=== PATIENT | male | born 1970 | race Caucasian/White ===

== ENCOUNTER 2020-04-20 08:02 | Outpatient (REF) | payer OTHER, SELFPAY | END 2020-04-20 08:03 | disposition home or self-care (01) | LOC: HO.HMGCLDS 08:02 | PROVIDERS: PCP Internal Medicine; Visit Provider Internal Medicine | DX: Z20.828 Contact with and (suspected) exposure to other viral communicable diseases (principal) | CPT/HCPCS: U0003 ==

== ENCOUNTER 2020-05-29 08:06 | Outpatient (REF) | payer OTHER, SELFPAY ==
[2020-05-29 11:41] LABS: Hematocrit 45.2 % (42-52); Hemoglobin 14.8 g/dl (14.0-18.0); Mean Corpuscular HGB Conc 32.7 g/dl (31.0-36.0); Mean Corpuscular Hemoglobin 28.6 pg (27.0-33.0); Mean Corpuscular Volume 87.4 fL (80-98); Mean Platelet Volume 9.3 fL (9.4-12.4); Platelet Count 272 X10*3/uL (160-400); Red Blood Count 5.17 X10*6/uL (4.60-5.80); Red Cell Distribution Width 12.9 % (11.0-16.0); White Blood Count 5.8 X10*3/uL (4.8-10.8)
[2020-05-29 12:04] LABS: Alanine Aminotransferase 22 U/L (0-40); Albumin Level 4.6 g/dL (3.5-5.0); Alkaline Phosphatase 52 U/L (39-117); Anion Gap 12 (12-20); Aspartate Amino Transferase 18 U/L (5-37); Bilirubin Total 0.6 mg/dL (0.0-1.0); Blood Urea Nitrogen 22 mg/dL (9-16); Calcium 9.3 mg/dL (8.4-10.2); Carbon Dioxide 26 mmol/L (22-29); Chloride 106 mmol/L (96-108); Cholesterol 264 mg/dL; Estimated Glomerular Filt Rate > 60; Glucose Random 104 mg/dL (60-115); HDL Cholesterol 47 mg/dL; LDL Cholesterol Calculated 189 mg/dl; Potassium 4.2 mmol/l (3.3-5.1); Sodium 140 mmol/L (135-145); Total Protein 7.4 g/dL (6.5-8.0); Triglycerides 141 mg/dL
[2020-05-29 12:24] LABS: Erythrocyte Sedimentation Rate 8 MM/HR (0-15)
== END 2020-05-29 08:07 | disposition home or self-care (01) ==
LOC: HO.HMGCLDS 08:06
PROVIDERS: PCP Internal Medicine; Visit Provider Internal Medicine
DX: Z00.00 Encounter for general adult medical examination without abnormal findings (principal)
CPT/HCPCS: 36415; 80053; 80061; 85027; 85652

== ENCOUNTER 2020-09-11 06:14 | Outpatient (REF) | payer OTHER, SELFPAY ==
[2020-09-11 12:03] LABS: Erythrocyte Sedimentation Rate 5 MM/HR (0-15)
[2020-09-11 12:14] LABS: Alanine Aminotransferase 26 U/L (0-40); Albumin Level 4.5 g/dL (3.5-5.0); Alkaline Phosphatase 53 U/L (39-117); Anion Gap 14 (12-20); Aspartate Amino Transferase 21 U/L (5-37); Bilirubin Total 0.6 mg/dL (0.0-1.0); Blood Urea Nitrogen 21 mg/dL (9-16); C Reactive Protein 0.44 mg/dL (< or = 0.50); Calcium 9.6 mg/dL (8.4-10.2); Carbon Dioxide 22 mmol/L (22-29); Chloride 107 mmol/L (96-108); Cholesterol 179 mg/dL; Estimated Glomerular Filt Rate > 60; Glucose Fasting 101 mg/dL (60-99); HDL Cholesterol 41 mg/dL; LDL Cholesterol Calculated 111 mg/dl; Potassium 4.1 mmol/L (3.3-5.1); Sodium 139 mmol/L (135-145); Total Protein 7.3 g/dL (6.5-8.0); Triglycerides 139 mg/dL
[2020-09-18 11:37] LABS: HLA B27 Positive (Negative)
== END 2020-09-11 06:15 | disposition home or self-care (01) ==
LOC: HO.HMGCLDS 06:14
PROVIDERS: PCP Internal Medicine; Visit Provider Internal Medicine
DX: Z00.00 Encounter for general adult medical examination without abnormal findings (principal); M45.9 Ankylosing spondylitis of unspecified sites in spine; E78.5 Hyperlipidemia, unspecified
CPT/HCPCS: 36415; 80053; 80061; 85652; 86140; 86812

== ENCOUNTER 2021-11-05 08:33 | Outpatient (REF) | payer BC, SELFPAY ==
[2021-11-05 11:52] LABS: Hematocrit 43.3 % (42.0-52.0); Hemoglobin 14.4 g/dl (14.0-18.0); Mean Corpuscular HGB Conc 33.3 g/dl (31.0-36.0); Mean Corpuscular Hemoglobin 29.8 pg (27.0-33.0); Mean Corpuscular Volume 89.5 fL (80.0-98.0); Mean Platelet Volume 9.5 fL (9.4-12.4); Platelet Count 249 X10*3/uL (160-400); Red Blood Count 4.84 X10*6/uL (4.60-5.80); Red Cell Distribution Width 13.4 % (11.0-16.0); White Blood Count 6.5 X10*3/uL (4.8-10.8)
[2021-11-05 12:23] LABS: TSH reflex Free T4 0.46 uIU/mL (0.32-4.0)
[2021-11-05 13:07] LABS: Alanine Aminotransferase 35 U/L (0-40); Albumin Level 4.6 g/dL (3.5-5.0); Alkaline Phosphatase 49 U/L (39-117); Anion Gap 13 (12-20); Aspartate Amino Transferase 22 U/L (5-37); Bilirubin Total 0.6 mg/dL (0.0-1.0); Blood Urea Nitrogen 20 mg/dL (9-16); C Reactive Protein 0.21 mg/dL (< or = 0.50); Calcium 9.5 mg/dL (8.4-10.2); Carbon Dioxide 21 mmol/L (22-29); Chloride 109 mmol/L (96-108); Cholesterol 187 mg/dL; Estimated Glomerular Filt Rate > 60; Glucose Fasting 109 mg/dL (60-99); HDL Cholesterol 44 mg/dL; LDL Cholesterol Calculated 108 mg/dl; Sodium 139 mmol/L (135-145); Total Protein 7.4 g/dL (6.5-8.0); Triglycerides 175 mg/dL
[2021-11-07 09:27] LABS: Lyme Abs Screen <0.90 index
== END 2021-11-05 08:34 | disposition home or self-care (01) ==
LOC: HO.HMGCLDS 08:33
PROVIDERS: Absent Provider Nurse Practitioner Family; PCP Internal Medicine; Visit Provider Internal Medicine
DX: E78.5 Hyperlipidemia, unspecified (principal); I10 Essential (primary) hypertension; M45.9 Ankylosing spondylitis of unspecified sites in spine; S30.860A Insect bite (nonvenomous) of lower back and pelvis, initial encounter; W57.XXXA Bitten or stung by nonvenomous insect and other nonvenomous arthropods, initial encounter
CPT/HCPCS: 36415; 80053; 80061; 84443; 85027; 86140; 86617; 86618

== ENCOUNTER 2022-09-16 06:24 | Outpatient (REF) | payer BC, SELFPAY ==
[2022-09-16 11:14] LABS: MANUAL DIFF FLAG NO
[2022-09-16 11:32] LABS: Basophils Absolute Auto 0.1 X10*3/uL (0.0-0.2); Basophils Percent Auto 1.1 % (0-2); Eosinophils Absolute Auto 0.2 X10*3/uL (0.0-0.4); Eosinophils Percent Auto 3.6 % (0-4); Hemoglobin 14.9 g/dl (14.0-18.0); Imm Gran Abs Auto 0.05 X10*3/uL (0.00-0.03); Imm Gran Pct Auto 0.8 % (0.0-0.4); Lymphocytes Absolute Auto 2.4 X10*3/uL (1.2-4.9); Lymphocytes Percent Auto 36.7 % (20-40); Mean Corpuscular HGB Conc 33.1 g/dl (31.0-36.0); Mean Corpuscular Hemoglobin 29.7 pg (27.0-33.0); Mean Corpuscular Volume 89.6 fL (80.0-98.0); Mean Platelet Volume 9.4 fL (9.4-12.4); Monocytes Absolute Auto 0.6 X10*3/uL (0.1-1.2); Monocytes Percent Auto 9.3 % (2-11); Neutrophils Absolute Auto 3.2 x10*3/uL (2.0-8.3); Neutrophils Percent Auto 48.5 % (45-73); Platelet Count 244 X10*3/uL (160-400); Red Blood Count 5.02 X10*6/uL (4.60-5.80); Red Cell Distribution Width 13.2 % (11.0-16.0); White Blood Count 6.6 X10*3/uL (4.8-10.8)
[2022-09-16 11:34] LABS: Appearance Urine Turbid; Color Urine Yellow; Glucose Urine UA Negative (Negative); Leukocyte Esterase Urine Negative (Negative); Nitrite Urine Negative (Negative); PH 5.5 (5.0-9.0); Specific Gravity - Urine 1.025 (1.005-1.025); Urine Blood Negative (Negative); Urine Ketones Negative (Negative); Urine Protein Negative (Neg-Trace)
[2022-09-16 11:39] LABS: Estimated Average Glucose 117 mg/dL; Hemoglobin A1c % 5.7 %
[2022-09-16 12:07] LABS: Alanine Aminotransferase 41 U/L (0-40); Albumin Level 4.5 g/dL (3.5-5.0); Alkaline Phosphatase 46 U/L (39-117); Anion Gap 12 (12-20); Aspartate Amino Transferase 25 U/L (5-37); Bilirubin Total 0.8 mg/dL (0.0-1.0); Blood Urea Nitrogen 23 mg/dL (9-16); Calcium 9.9 mg/dL (8.4-10.2); Carbon Dioxide 23 mmol/L (22-29); Chloride 108 mmol/L (96-108); Cholesterol 179 mg/dL; Estimated Glomerular Filt Rate > 60; Glucose Fasting 110 mg/dL (60-99); HDL Cholesterol 42 mg/dL; LDL Cholesterol Calculated 114 mg/dl; Potassium 4.1 mmol/L (3.3-5.1); Sodium 139 mmol/L (135-145); Total Protein 6.9 g/dL (6.5-8.0); Triglycerides 119 mg/dL
[2022-09-16 12:25] LABS: PSA,Total (Free>4and<10) 1.28 ng/mL (0.00-4.00); TSH reflex Free T4 0.83 uIU/mL (0.32-4.0)
== END 2022-09-16 06:25 | disposition home or self-care (01) ==
LOC: HO.HMGCLDS 06:24
PROVIDERS: PCP Internal Medicine; Visit Provider Internal Medicine
DX: Z12.5 Encounter for screening for malignant neoplasm of prostate (principal); E78.5 Hyperlipidemia, unspecified; M45.9 Ankylosing spondylitis of unspecified sites in spine; R73.9 Hyperglycemia, unspecified; I10 Essential (primary) hypertension
CPT/HCPCS: 36415; 80053; 80061; 81003; 83036; 84153; 84443; 85025; 86140

== ENCOUNTER → 2022-10-22 12:42 | Outpatient (BNVA) | payer BC, SELFPAY | PROVIDERS: PCP Internal Medicine; Visit Provider Nurse Practitioner ==

== ENCOUNTER 2023-04-29 08:00 | Outpatient (RCR) | payer BC, SELFPAY ==
--- NOTE | 2022-09-24 09:04 | MHC.PT.EP ---
[facility] [place] Office [place] Office [place] Office [address] Bryan Blood [address] [phone] F: [phone] F: [phone] F: [phone] F: [phone] Physical Therapy Plan of Care Date of Evaluation: Date of Surgery: Diagnosis: This is a 52 yo male presenting to skilled PT with a script for pain in L shoulder. Assessment: This is a 52 yo female presenting to skilled PT with a script for pain in L shoulder. Patient is RHD. He is here today reporting ongoing on and off again shoulder pain after being diagnosed with ankylosing spondylosis 10 years ago. He states that it is not just his shoulder but it moves to different joints depending on the day and tiem. He has had PT on and off for this and the last time was 5 months ago. He reports still doing some HEP but unable to recall which exercises. Pain is located in the middle in the joint and is described as sharp. This has been lingering for 8-10 months now. He had a cortisone injection at the associate pathologist which did not help. Pain increases with reaching overhead and to the side, laying on the L. Pain improves with movement. Assessment reveals pain that ranges up to about a 4/10. Patient demos decreased ROM with upper trap compensation, strength at shoulder and scapular stabilizers, TTP at upper trap and decreased functional tolerance for ADLs, sleeping and housework. Based on functional limitations, impaired QOL and pain tolerance patient is a good candidate for skilled PT 2x/wk for 4wks. 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 Manual therapy to restore motion and function. Therapeutic exercise to improve strength and flexibility. Neuromuscular re-education for posture and balance. Therapeutic activities to return to functional activities of daily living. Electronically signed by: Lindsey Bernal PT Please sign and return to therapist. Thank you for your referral.
--- NOTE | 2023-05-01 07:41 | MHC.PT.DC ---
[facility] [place] Office [place] Office [place] Office [address] Bryan Blood [address] [phone] F: [phone] F: [phone] F: [phone] F: [phone] Physical Therapy Discharge Report Diagnosis: This is a 52 yo male presenting to skilled PT with a script for pain in L shoulder. Date of Surgery: Date of Evaluation: 09/24/22 Date of Discharge: 05/01/23 Treatments to Date: 20 Cancellations to Date: 0 No Shows to Date: 0 Discharge Status: Achieved Goals Improved Function Independent with HEP Insurance Declined Tx Recommend MD Follow-up Discharge Summary: Patient has had 20 visits of PT. His insurance plan is ending for the year and he needs a new referral for PT. Educated him on PT POC, importance of performing HEP on his own. He was adamant on needing PT hands on manual however he was also educated on importance of independence. He was educated to follow up with his MD as he still has symptoms and would benefit from further referrals to imaging, orthopedics, or maybe rheumatology. DC to HEP. Electronically signed by: Lindsey Bernal PT Please sign and return to therapist. Thank you for your referral.
== END 2023-05-01 07:42 | disposition home or self-care (01) ==
LOC: HO.PTCHIC 08:00
PROVIDERS: PCP Internal Medicine; Visit Provider Internal Medicine
DX: M25.512 Pain in left shoulder (principal)
CPT/HCPCS: 97110; 97140; 97161; 97530

== ENCOUNTER 2023-05-06 06:20 | Day surgery (SDC) | payer BC, SELFPAY ==
[2023-05-04 12:12] VITALS: BMI 30.4
--- NOTE | 2023-05-05 11:48 | HO.ANESPROP2 ---
Documented by User: Linda Hill NP 05/05/23 11:48 HPI - Anesthesia Eval Consult details Narrative: 52yo M for Colonoscopy PMFSH Active Problems Active Problems: All Active Problems (Updated 10/22/22 @ 13:13 by MARIANO Tran) Family history of polyps in the colon (Acute) Pre-op examination (Acute) Shoulder pain, left (Acute) Hyperglycemia (Acute) HTN (hypertension) (Acute) Hyperlipidemia (Acute) Ankylosing spondylitis (Acute) Annual physical exam (Acute) Past Medical History Medical History Hyperlipidemia HTN (hypertension) Ankylosing spondylitis Annual physical exam Family History Family History Mother Ovarian ca Father Stroke Sister Stroke Maternal Grandfather Breast cancer Surgical History Surgical History Hx of appendectomy Social History Social History Housing: House Alcohol intake: current Alcohol intake frequency: does not drink Patient Tobacco Use Status: Current everyday Tobacco user e-Cigarette/Vaping Use: Never Used Are you DNR?: No Advance Directives: No Advance Directives Information Provided: Yes Current occupational status: employed Cognitive needs: No Hearing needs: No Vision needs: Yes Meds Allergies Allergy/AdvReac Type Severity Reaction Status Date / Time penicillin V Allergy Mild Rash Verified 09/19/22 12:12 Home Medications Medication Instructions Recorded Confirmed Last Taken Type aspirin 81 mg tablet,delayed 81 mg PO DAILY 05/25/20 09/19/22 04/29/23 History release cetirizine 10 mg tablet (Zyrtec) 10 mg PO DAILY PRN allergies 10/22/22 05/05/23 History Exam Height,Weight and Vital Signs: Height 5 ft 5 in Weight 83.007 kg Pertinent Lab Results Pertinent Lab Results: Laboratory Tests 09/16/22 06:45 WBC 6.6 Hgb 14.9 Hct 45.0 Plt Count 244 Sodium 139 Potassium 4.1 Chloride 108 Carbon Dioxide 23 BUN 23 H Creatinine 0.85 Assessment and Plan Assessment Anesthesia Assessment: Chart Reviewed Documented by User: Krista Arthur MD 05/06/23 07:44 PMFSH Past Medical History Medical History Hyperlipidemia HTN (hypertension) Ankylosing spondylitis Annual physical exam Family History Family History Mother Ovarian ca Father Stroke Sister Stroke Maternal Grandfather Breast cancer Family history of problems with anesthesia: No Surgical History Surgical History Hx of appendectomy History of Problems with Anesthesia: No Social History Social History Housing: House Alcohol intake: current Alcohol intake frequency: does not drink Patient Tobacco Use Status: Current everyday Tobacco user e-Cigarette/Vaping Use: Never Used Are you DNR?: No Advance Directives: No Advance Directives Information Provided: Yes Current occupational status: employed Cognitive needs: No Hearing needs: No Vision needs: Yes Meds Allergies Allergy/AdvReac Type Severity Reaction Status Date / Time penicillin V Allergy Mild Rash Verified 09/19/22 12:12 Home Medications Medication Instructions Recorded Confirmed Last Taken Type aspirin 81 mg tablet,delayed 81 mg PO DAILY 05/25/20 09/19/22 04/29/23 History release cetirizine 10 mg tablet (Zyrtec) 10 mg PO DAILY PRN allergies 10/22/22 05/05/23 History Exam Airway Mallampati Class: II TM Dist: >3cm Neck ROM: Full Heart: rrr Lungs: cta Assessment and Plan Assessment Anesthesia Assessment: Anesthesia Plan Discussed Final Anesthetic Review Family History of Problems with Anesthesia: No History of Problems with Anesthesia: No NPO: Yes ASA Class: II and III Final Preanesthetic Review: No Changes in Pt Med Stat, Meds/Allgs Chart Reviewed, Consent Obtained/Reviewed and Anes Risks/Benef Reviewed Patient Risk: Intermediate Procedure Risk: Intermediate Anesthetic Plan Anesthetic Plan: MAC: Disposition: Standard PACU
[2023-05-06 06:30] VITALS: BP 115/69; PULSE 83; RESP 18; TEMP 36.3; O2SAT 97
[2023-05-06 06:31] VITALS: BMI 31.6
[2023-05-06] MEDS: Lactated Ringers 1,000 ML 100 ML IVCONT (06:52)
--- NOTE | 2023-05-06 06:52 | MHC.SHP ---
Pre-Procedural Eval Section A Date of Service: 05/06/23 Section B Chief Complaint: Family history of colonic polyps Relevant Family History (Specify if Yes): Yes Relevant Social History: Tobacco Use Present Medications: see Short Stay Collaborative assessment Medical History: Significant History (Hyperlipidemia HTN (hypertension) Ankylosing spondylitis) History of Previous Operations: Relevant previous surgery/procedure and date(s) (appendectomy) Allergies: Allergies Allergy/AdvReac Type Severity Reaction Status Date / Time penicillin V Allergy Mild Rash Verified 09/19/22 12:12 Review of Systems Sugical H&P ROS: Negative: Constitution, Cardiovascular, Respiratory, Neurological, Psychiatric, Hem-Onc, Allergic/Immunologic, Gastrointestinal, Genitourinary, Musculoskeletal, Integumentary, Endocrine and Eyes/Ears/Nose/Throat Exam Surgical H&P Exam: Normal: HEENT, Normal: Heart, Normal: Lungs, Normal: Extremities, Normal: Abdomen, Normal: Skin and Normal: Neurological Plan Diagnosis/Plan: Unchanged I have reviewed the history and physical and performed a pertinent physical examination on my patient. No changes have occurred unless specified. Time Spent With Patient Time: Total time managing care of this patient today ____ minutes.
--- NOTE | 2023-05-06 08:56 | W.PM.OPN ---
Operative Note Operative Note Date of Service: 05/06/23 Narrative: Operative Information Procedure Description: Colonoscopy Indication: screening Anesthesia: MAC COLONOSCOPY Instrument: Olympus variable stiffness pediatric scope 190L Colonoscopy Monitoring: Vital signs and clinical assessment, continuous EKG monitoring, Pulse oximetry, Carbon Dioxide monitoring and blood pressure monitoring were done throughout the procedure. Colon withdrawal time was 14 minutes. Procedure: The patient was placed in the left lateral decubitis position and pre-procedure medications were administered. After a digital rectal examination of the ano-rectum, the video colonoscope was inserted into the rectum and advanced through the colon to the cecum/TI. The colonoscope was slowly withdrawn in a retrograde panoramic fashion and the colon mucosa was carefully examined including a retroflexed view of the rectum. Findings and interventions are described below. Procedure Difficulty: easy Findings: Terminal Ileum-normal Cecum:normal Ascending Colon: x 2 sessile polyps 7-10 mm removed with cold snare Transverse Colon -normal Descending Colon:normal Sigmoid Colon: normal Rectum: Retroflexion with small internal hemorrhoids, grade I, 4-6 mm sessile polyp removed with cold forceps Anorectum - normal Colon preparation: [place] Bowel Preparation Scale Right colon; 2 Transverse colon: 3 Left colon; 3 (0 = Unprepared colon segment with mucosa not seen due to solid stool that cannot be cleared. 1 = Portion of mucosa of the colon segment seen, but other areas of the colon segment not well seen due to staining, residual stool and/or opaque liquid. 2 = Minor amount of residual staining, small fragments of stool and/or opaque liquid, but mucosa of colon segment seen well. 3 = Entire mucosa of colon segment seen well with no residual staining, small fragments of stool or opaque liquid) Impression and Post Procedure Diagnosis: polyps internal hemorrhoids Plan: High fiber diet leaflet Avoid straining at stool, epsom salts and sitz bath, anusol supps or cream Repeat Colonoscopy in 5 years due to polyps or earlier if clinically indicated Above findings were reviewed with the patient and relevant handouts were provided if indicated.
[2023-05-06 08:58] VITALS: BP 104/64; PULSE 82; RESP 16; TEMP 36.7; O2SAT 95
[2023-05-06 09:15] VITALS: BP 114/82; PULSE 87; RESP 18; TEMP 36.7; O2SAT 96
== END 2023-05-06 09:57 | disposition home or self-care (01) ==
PROVIDERS: PCP Internal Medicine; Visit Provider Internal Medicine Gastroenterology
PROC: 0DJD8ZZ Inspection of Lower Intestinal Tract, Via Natural or Artificial Opening Endoscopic (ICD-10-PCS; CPT 45378; principal; 2023-05-06 08:30)
DX: Z12.11 Encounter for screening for malignant neoplasm of colon (principal); Z83.719 Family history of colon polyps, unspecified; D12.2 Benign neoplasm of ascending colon; D12.8 Benign neoplasm of rectum; K64.0 First degree hemorrhoids; I10 Essential (primary) hypertension; E78.00 Pure hypercholesterolemia, unspecified; R73.9 Hyperglycemia, unspecified; M45.9 Ankylosing spondylitis of unspecified sites in spine; Z79.82 Long term (current) use of aspirin; Z79.899 Other long term (current) drug therapy; Z88.0 Allergy status to penicillin; F17.210 Nicotine dependence, cigarettes, uncomplicated
CPT/HCPCS: 45385; 45380; 88305; J2704

== ENCOUNTER → 2023-05-06 06:20 | Outpatient (BNV) | payer BC, SELFPAY | PROVIDERS: PCP Internal Medicine; Visit Provider Internal Medicine Gastroenterology | DX: Z12.11 Encounter for screening for malignant neoplasm of colon (principal); D12.2 Benign neoplasm of ascending colon; D12.8 Benign neoplasm of rectum; K64.0 First degree hemorrhoids | CPT/HCPCS: 45380; 45385 ==

== ENCOUNTER 2023-05-21 11:12 | Outpatient (AMB) | payer BC, SELFPAY ==
[2023-05-21 11:13] VITALS: BP 122/74; PULSE 77; BMI 31.1
--- NOTE | 2023-05-21 11:13 | MHC.OFFVIS ---
Intake Vital Signs 05/21/23 11:13 Height 5 ft 5 in Weight 186 lb 15.232 oz BMI 31.1 BP 122/74 Blood Pressure Location Lt brachial Position Sitting Pulse 77 Intake Visit Reasons: s/P [place]; Dr. Cardoso Intake Note: Patient presents to in office visit today in follow up of colonoscopy. CC: Patient underwent colonoscopy with DR. Cardoso on 05/06/23. Patient reports doing well and denies having any GI symptoms or concerns. Allergies penicillin V Allergy (Mild, Verified 05/21/23 11:16) Rash HPI s/P [place]; Dr. Cardoso HPI Details Assessment & Plan (1) Pre-op examination: Code(s): Z01.818 - Encounter for other preprocedural examination Plan: This is his first colonoscopy. He denies any bowel or upper GI problems. He denies any cardiac or respiratory problems. No ID problems. There are no prior problems with anesthesia or sedation. His brother had colon polyps removed. (2) Family history of polyps in the colon: Comment: borther Code(s): Z83.71 - Family history of colonic polyps Medications: New peg 3350-electroly nikolas 236-22.74-6.74 -5.86 gram (Golyt jose) until feca l effluent is karel r; do not exceed a total volume of 2 ,000 mL 240 mL PO Q10M 1 day 4,000 mL 0RF Z12.11 - Encounter for screening for malignant neoplas m of colon COLONOSCOPY 05/06/23 Findings: Terminal Ileum-normal Cecum:normal Ascending Colon: x 2 sessile polyps 7-10 mm removed with cold snare Transverse Colon -normal Descending Colon:normal Sigmoid Colon: normal Rectum: Retroflexion with small internal hemorrhoids, grade I, 4-6 mm sessile polyp removed with cold forceps Anorectum - normal Impression and Post Procedure Diagnosis: polyps internal hemorrhoids Plan: High fiber diet leaflet Avoid straining at stool, epsom salts and sitz bath, anusol supps or cream Repeat Colonoscopy in 5 years due to polyps or earlier if clinically indicated BIOPSY: Received: 05/06/23 Diagnosis A. Colon, ascending, polypectomies (2): Fragments of tubular adenomata; negative for high-grade dysplasia or carcinoma. B. Rectum, polypectomy: Tubular adenoma; negative for high-grade dysplasia or carcinoma TODAY'S VISIT The procedure needs to be repeated in 5 years due to the tubular adenomas. The procedure was well tolerated. The results were explained and the patient is agreeable to the follow-up interval as stated. The bowel pattern has returned to normal. Education was provided to tell any 1st degree relatives about their findings to be sure that they are screened by age 45. Educated that they will be put on a recall list when it is time for their repeat scope but should they move out of state or away from the hospital they will need to remember along with their primary to repeat the procedure in a timely fashion to avoid any adverse complications. [facility] Medical History Hyperlipidemia HTN (hypertension) Ankylosing spondylitis Annual physical exam Surgical History H/O colonoscopy Hx of appendectomy Family History Mother Ovarian ca Father Stroke Sister Stroke Maternal Grandfather Breast cancer Social History Housing: House Alcohol intake: current Alcohol intake frequency: does not drink Patient Tobacco Use Status: Current everyday Tobacco user e-Cigarette/Vaping Use: Never Used Current occupational status: employed Cognitive needs: No Hearing needs: No Vision needs: Yes Review of Systems Const Denies fatigue, Denies fever(s), Denies night sweats, Denies poor appetite and Denies weight loss Eyes Details: glasses Reports requires corrective lenses ENT Reports Normal hearing present, Denies dental pain, Denies dysphagia, Denies hearing loss, Denies mouth pain, Denies odynophagia, Denies throat swelling, Denies tongue swelling and Reports other (Dentition adequate) Card Reports no additional complaints Resp Reports no additional complaints GI Denies abdominal pain, Denies melena, Denies bloating, Denies hematochezia, Denies constipation, Denies GI cramping, Denies dysphagia, Denies excessive flatus, Denies early satiety, Denies heartburn, Denies diarrhea, Denies nausea, Denies odynophagia, Denies vomiting and Denies hematemesis Skin/Breast Denies pruritus, Denies lesions, Denies rash and Denies jaundice Neuro Reports Normal hearing present and Denies Abnormal speech present Endo Denies fatigue Aller/Immun Denies throat swelling and Denies tongue swelling Physical Exam Vital Signs: Last Vital Signs Pulse 77 05/21/23 11:13 BP 122/74 05/21/23 11:13 BMI result Body Mass Index 31.1 Const General: cooperative, no acute distress, well developed and well groomed Nutritional Appearance: well nourished and obese Orientation/consciousness: oriented to person, oriented to place and oriented to time Limitations: No language barrier HEENT Head: Yes normocephalic and Yes atraumatic Eyes General: appearance normal, both eyes and all related structures Pupils: Equal, round and reactive pupils present Neck Neck: Yes normal visual inspection and Yes no lymphadenopathy Thyroid: Thyroid normal Resp Effort & Inspection: normal respiratory effort and able to speak in complete sentences Auscultation: clear to auscultation bilaterally Cardio Rate: regular rate Rhythm: regular rhythm Heart sounds: Normal, physiologic split S2 sound present Peripheral pulses: radial pulses present and posterior tibial pulses present GI Inspection: No distended, No Abdominal panniculus present and Yes obesity Palpation (GI): Soft to palpation, nontender, no guarding, not rigid and No hepatosplenomegaly present Percussion: Yes normal to percussion Auscultation: normal bowel sounds Rectal Exam - Male: Yes deferred Skin General skin exam: no rashes or lesions noted, turgor normal, skin not dry, no jaundice, No spider nevi and no striae Rashes: no rashes Nails: normal Neuro General: oriented to person, oriented to place and oriented to time Cranial nerves: Yes Equal, round and reactive pupils present and Yes Normal hearing present Speech: No Abnormal speech present Extrem General: Yes normal to inspection, No clubbing, No cyanosis and No edema Psych Appearance: grossly normal and well kempt Mental Status: mental status grossly normal Speech and movement: Normal speech and movement present Affect: normal affect Attitude: cooperative Thought process: Normal thought process present and not confabulating Thought content: Normal thought content present Insight: Fair insight present (Psych) Judgement: Fair judgement present (Psych) Results Reviewed Results Reviewed: COLONOSCOPY 05/06/23 Findings: Terminal Ileum-normal Cecum:normal Ascending Colon: x 2 sessile polyps 7-10 mm removed with cold snare Transverse Colon -normal Descending Colon:normal Sigmoid Colon: normal Rectum: Retroflexion with small internal hemorrhoids, grade I, 4-6 mm sessile polyp removed with cold forceps Anorectum - normal Impression and Post Procedure Diagnosis: polyps internal hemorrhoids Plan: High fiber diet leaflet Avoid straining at stool, epsom salts and sitz bath, anusol supps or cream Repeat Colonoscopy in 5 years due to polyps or earlier if clinically indicated BIOPSY: Received: 05/06/23 Diagnosis A. Colon, ascending, polypectomies (2): Fragments of tubular adenomata; negative for high-grade dysplasia or carcinoma. B. Rectum, polypectomy: Tubular adenoma; negative for high-grade dysplasia or carcinoma Assessment & Plan Assessment & Plan (1) Tubular adenoma of colon: Comment: 04/2023= 3 TA is repeat in [address] Schwartz son Code(s): D12.6 - Benign neoplasm of colon, unspecified Plan The procedure needs to be repeated in 5 years due to the tubular adenomas. The procedure was well tolerated. The results were explained and the patient is agreeable to the follow-up interval as stated. The bowel pattern has returned to normal. Education was provided to tell any 1st degree relatives about their findings to be sure that they are screened by age 45. Educated that they will be put on a recall list when it is time for their repeat scope but should they move out of state or away from the hospital they will need to remember along with their primary to repeat the procedure in a timely fashion to avoid any adverse complications. Coding Level of Care Code Est Pt Level 3 (04709) Diagnoses Tubular adenoma of colon D12.6
== END 2023-05-21 11:45 | disposition home or self-care (01) ==
PROVIDERS: PCP Internal Medicine; Visit Provider Nurse Practitioner
DX: D12.6 Benign neoplasm of colon, unspecified (principal)
CPT/HCPCS: 99213

== ENCOUNTER → 2023-05-21 11:12 | Outpatient (BNVA) | payer BC, SELFPAY | PROVIDERS: PCP Internal Medicine; Visit Provider Nurse Practitioner ==

== ENCOUNTER 2023-07-01 08:21 | Outpatient (REF) | payer BC, SELFPAY ==
[2023-07-01 11:56] LABS: Estimated Average Glucose 114 mg/dL; Hemoglobin A1C 134.1778 umol/L; Hemoglobin A1c % 5.6 % (<6.0)
[2023-07-01 12:24] LABS: Alanine Aminotransferase 31 U/L (0-40); Albumin Level 4.3 g/dL (3.5-5.0); Alkaline Phosphatase 46 U/L (39-117); Anion Gap 12 (12-20); Aspartate Amino Transferase 23 U/L (5-37); Bilirubin Total 0.7 mg/dL (0.0-1.0); Blood Urea Nitrogen 14 mg/dL (9-16); Calcium 9.6 mg/dL (8.4-10.2); Carbon Dioxide 24 mmol/L (22-29); Chloride 107 mmol/L (96-108); Cholesterol 250 mg/dL (<200); Estimated Glomerular Filt Rate > 60; Glucose Fasting 103 mg/dL (60-99); HDL Cholesterol 42 mg/dL (>40); LDL Cholesterol Calculated 168 mg/dL (<100); Potassium 3.9 mmol/L (3.3-5.1); Sodium 139 mmol/L (135-145); Total Protein 7.3 g/dL (6.5-8.0); Triglycerides 204 mg/dL (<150)
== END 2023-07-01 08:22 | disposition home or self-care (01) ==
LOC: HO.HMGCLDS 08:21
PROVIDERS: PCP Internal Medicine; Visit Provider Internal Medicine
DX: I10 Essential (primary) hypertension (principal); E78.5 Hyperlipidemia, unspecified; R73.9 Hyperglycemia, unspecified
CPT/HCPCS: 36415; 80053; 80061; 83036

== ENCOUNTER 2024-02-26 12:53 | Outpatient (AMB) | payer BC, SELFPAY ==
--- NOTE | 2024-02-26 12:58 | MHC.PC.OV ---
Vital Signs 02/26/24 13:01 Height 5 ft 5 in Weight 185 lb BMI 30.8 BP 124/78 Blood Pressure Location Lt brachial Position Sitting Pulse 84 Pulse Source Pulse Oximeter Pulse Oximetry (%) 97 Oxygen Delivery Method Room Air Intake Visit Reasons: Annual PE Intake Note: Pt is here today for PE. Allergies penicillin V Allergy (Mild, Verified 02/26/24 13:11) Rash Medication List - Last Reconciled 02/26/24 by Kia Abdalla MD aspirin 81 mg PO DAILY atorvastatin 20 mg PO DAILY cetirizine (Zyrtec) 10 mg PO DAILY PRN lisinopril 20 mg PO DAILY Tobacco use date assessed: 02/26/24 Dental Screening Dental Screen Date: 02/26/24 Did you have a dental visit in the last 12 months?: Yes Did you have a dental problem in the last 6 months where you did not have access to dental care?: No HPI Annual PE HPI Details Patient presents for physical PFSH Medical History Hyperlipidemia HTN (hypertension) Ankylosing spondylitis Annual physical exam Surgical History H/O colonoscopy Hx of appendectomy Family History Mother Ovarian ca Father Stroke Sister Stroke Maternal Grandfather Breast cancer Social History Housing: House Alcohol intake: current Alcohol intake frequency: does not drink Patient Tobacco Use Status: Never used Tobacco e-Cigarette/Vaping Use: Never Used service: No Current occupational status: employed Cognitive needs: No Hearing needs: No Vision needs: Yes Questionnaire PHQ-9 Over the last 2 weeks, how often have you been bothered by any of the following problems? 1. Little interest or pleasure in doing things: not at all 2. Feeling down, depressed, or hopeless: not at all 3. Trouble falling or staying asleep, or sleeping too much: not at all 4. Feeling tired or having little energy: not at all 5. Poor appetite or overeating: not at all 6. Feeling bad about yourself - or that you are a failure or have let yourself or your family down: not at all 7. Trouble concentrating on things, such as reading the newspaper or watching television: not at all 8. Moving or speaking so slowly that other people could have noticed. Or the opposite - being so fidgety or restless that you have been moving around a lot more than usual: not at all 9. Thoughts that you would be better off or of hurting yourself in some way: not at all Total score: 0 Depression Screening Interpretation: Negative Depression Screening Done: Yes 19893 - PHQ-9 Billing: Yes Source: Developed by Drs. Florencio Jones, Carolina Argueta, Carlito Mahajan and colleagues, with an educational luis a from [employer]. Thrive Questionnaire Date Thrive assessed: 02/26/24 I am a: Patient What is your living situation today?: I have a steady place to live Within the past 12 months, did the food you bought not last and you didn't have the money to get more?: Never true Within the past 12 months, did you worry whether your food would run out before you got money to buy more?: Never true Do you have trouble paying for medicines?: No Do you have trouble getting transportation to medical appointments?: No Do you have trouble paying your heating and electricity bill?: No Do you have trouble taking care of your child, family member or friend?: No Do you have trouble with day-to-day activities such as bathing, preparing meals, shopping, managing finances, etc.?: No Are you currently unemployed and looking for a job?: No Are you interested in more education?: No Please select the resources that you would like help with: None Currently or been in a relationship where the following occur: I choose not to answer THRIVE Score: 0 AUDIT C Alcohol Use Questionnaire (AUDIT-C) 1. How often do you have a drink containing alcohol?: Never Total Score: 0 KRISTIN-7 AMB Questionnaire KRISTIN-7 Date KRISTIN - 7 assessed: 02/26/24 Feeling nervous, anxious, or on edge: 0 = Not at all Not being able to stop or control worryin = Not at all Worrying too much about different things: 0 = Not at all Trouble relaxin = Not at all Being so restless that it is hard to sit still: 0 = Not at all Becoming easily annoyed or irritable: 0 = Not at all Feeling afraid as if something awful might happen: 0 = Not at all Total KRISTIN-7 score (0-4 normal; 5-9 mild; 10-14 moderate; 15-21 severe): 0 Source: Developed by Drs. Florencio Jones, Carolina Argueta, Carlito Mahajan and colleagues, with an educational luis a from [employer]. KRISTIN-7 Assessment Billing KRISTIN-7 Assessment Tool: KRISTIN-7 Assessment 99040 Review of Systems Const All systems reviewed & are unremarkable except as noted in HPI and below Eyes Reports no additional complaints ENT Reports no additional complaints Card Reports no additional complaints Resp Reports no additional complaints GI Reports no additional complaints Reports no additional complaints Physical exam (Primary Care) Vital Signs: Last Vital Signs Pulse 84 02/26/24 13:01 BP 124/78 02/26/24 13:01 Pulse Ox 97 02/26/24 13:01 Oxygen Delivery Method Room Air 02/26/24 13:01 BMI result Body Mass Index 30.8 Tobacco/Smoking Status: Tobacco use Status Tobacco use date assessed 02/26/24 02/26/24 13:14 Patient Tobacco Use Status Never used Tobacco 02/26/24 13:14 e-Cigarette/Vaping Use Never Used 02/26/24 12:59 PHQ-9: PHQ-9 Score PHQ-9: Total score 0 02/26/24 13:14 Depression Screening Interpretation: Negative Thrive Assessment: Date of Thrive Assessment Date Thrive assessed 02/26/24 02/26/24 13:14 Currently or been in a relationship where the following occur: I choose not to answer Const General: no acute distress HENMT Ears: hearing grossly normal bilaterally Mouth: Normal oral and palatal mucosa present Throat: Yes posterior oropharynx normal Neck Neck: Yes no lymphadenopathy and Yes supple Resp Effort & Inspection: normal respiratory effort Auscultation: clear to auscultation bilaterally Cardio Rhythm: regular rhythm Heart sounds: S1 normal heart sound present and S2 normal heart sound present GI Inspection: Yes normal to inspection Palpation (GI): Soft to palpation Percussion: Yes normal to percussion Auscultation: normal bowel sounds Coding Level of Care Code Est Pt Prev Care 40-64y(68720) Diagnoses Annual physical exam Z00.00 Ankylosing spondylitis M45.9 HTN (hypertension) I10 Hyperlipidemia E78.5 Hyperglycemia R73.9 Overweight E66.3 Additional Codes KRISTIN-7 Assessment Billing - KRISTIN-7 Assessment Tool: KRISTIN-7 Assessment 69112 ([id number]) Assessment & Plan Assessment & Plan (1) Annual physical exam: Code(s): Z00.00 - Encounter for general adult medical examination without abnormal findings Category: Medical Plan: Well-balanced diet regular physical activity discussed with the patient, he will return for fasting blood work (2) Ankylosing spondylitis: Comment: f/u rheumatology Dr. Elizabeth Rendon Code(s): M45.9 - Ankylosing spondylitis of unspecified sites in spine Category: Medical Plan: Follow-up with rheumatology (3) HTN (hypertension): Code(s): I10 - Essential (primary) hypertension Category: Medical Plan: Continue Lisinopril (4) Hyperlipidemia: Code(s): E78.5 - Hyperlipidemia, unspecified Category: Medical Plan: Continue statin (5) Hyperglycemia: Code(s): R73.9 - Hyperglycemia, unspecified Category: Medical Plan: Continue ADA diet increase physical activity weight loss discussed with the patient. (6) Overweight: Code(s): E66.3 - Overweight Category: Medical Plan: Patient's BMI is 30.8. He has been trying to decrease caloric intake increase physical activity for over 6 months unsuccessfully. He would like to try GLP 1 agonist. Wegovy 0.25 weekly sent to the pharmacy. side effects discussed with the patient. the weight will be monitored and dose increase as needed Orders: Orders Comprehensive [place]. Panel Fast Today E78.5 - Hyperlipidemia, unspecified, I10 - Essential (primary) hypertension, M45.9 - Ankylosing spondylitis of unspecified sites in spine, Z00.00 - Encounter for general adult medical examination without abnormal findings Complete Blood Count Auto Diff Today E78.5 - Hyperlipidemia, unspecified, I10 - Essential (primary) hypertension, M45.9 - Ankylosing spondylitis of unspecified sites in spine, Z00.00 - Encounter for general adult medical examination without abnormal findings PSA,Total (Free>4and<10) Today E78.5 - Hyperlipidemia, unspecified, I10 - Essential (primary) hypertension, M45.9 - Ankylosing spondylitis of unspecified sites in spine, Z00.00 - Encounter for general adult medical examination without abnormal findings Hemoglobin A1c Today R73.9 - Hyperglycemia, unspecified Lipid Panel Today E78.5 - Hyperlipidemia, unspecified, I10 - Essential (primary) hypertension, M45.9 - Ankylosing spondylitis of unspecified sites in spine, Z00.00 - Encounter for general adult medical examination without abnormal findings UA w Microscopic Today E78.5 - Hyperlipidemia, unspecified, I10 - Essential (primary) hypertension, M45.9 - Ankylosing spondylitis of unspecified sites in spine, Z00.00 - Encounter for general adult medical examination without abnormal findings Medications: New Wegovy (semaglutide (weight loss)) 0.25 mg (0.5 mL) subcut QWEEK 2 mL 2RF NS Refilled atorvastatin 20 mg PO DAILY 90 tabs 3RF
[2024-02-26 13:01] VITALS: BP 124/78; PULSE 84; O2SAT 97; BMI 30.8
== END 2024-02-26 13:39 | disposition home or self-care (01) ==
PROVIDERS: PCP Internal Medicine; Visit Provider Internal Medicine
DX: Z00.00 Encounter for general adult medical examination without abnormal findings (principal); M45.9 Ankylosing spondylitis of unspecified sites in spine; I10 Essential (primary) hypertension; E78.5 Hyperlipidemia, unspecified; R73.9 Hyperglycemia, unspecified; E66.3 Overweight

== ENCOUNTER → 2024-02-26 12:53 | Outpatient (BNVA) | payer BC, SELFPAY | PROVIDERS: PCP Internal Medicine; Visit Provider Internal Medicine | DX: Z00.00 Encounter for general adult medical examination without abnormal findings (principal); M45.9 Ankylosing spondylitis of unspecified sites in spine; I10 Essential (primary) hypertension; E78.5 Hyperlipidemia, unspecified; R73.9 Hyperglycemia, unspecified; E66.3 Overweight; Z68.30 Body mass index [BMI] 30.0-30.9, adult; Z79.899 Other long term (current) drug therapy | CPT/HCPCS: 96127 ==

== ENCOUNTER 2024-09-16 06:09 | Outpatient (REF) | payer BC, SELFPAY ==
[2024-09-16 10:06] LABS: Appearance Urine Clear; Color Urine Yellow; Glucose Urine UA Negative (Negative); Leukocyte Esterase Urine Negative (Negative); MANUAL DIFF FLAG NO; Nitrite Urine Negative (Negative); PH 5.5 (5.0-9.0); Specific Gravity - Urine 1.025 (1.005-1.025); Urine Blood Negative (Negative); Urine Ketones Negative (Negative); Urine Protein Negative (Neg-Trace)
[2024-09-16 10:11] LABS: Bacteria Urine None Seen (None Seen); Hyaline Casts Urine 0-2 /LPF (0-2); RBC Urine 0-2 /HPF (0-2); Squamous Epithelial Cell Urine 0-2 /HPF (0-2); WBC Urine 0-5 /HPF (0-5)
[2024-09-16 10:13] LABS: Basophils Percent Auto 0.7 % (0-2); Eosinophils Absolute Auto 0.2 X10*3/uL (0.0-0.4); Eosinophils Percent Auto 3.2 % (0-4); Hematocrit 42.3 % (42.0-52.0); Imm Gran Abs Auto 0.03 X10*3/uL (0.00-0.03); Imm Gran Pct Auto 0.5 % (0.0-0.4); Lymphocytes Absolute Auto 1.8 X10*3/uL (1.2-4.9); Lymphocytes Percent Auto 32.3 % (20-40); Mean Corpuscular HGB Conc 33.1 g/dl (31.0-36.0); Mean Corpuscular Hemoglobin 29.9 pg (27.0-33.0); Mean Corpuscular Volume 90.4 fL (80.0-98.0); Mean Platelet Volume 9.1 fL (9.4-12.4); Monocytes Absolute Auto 0.6 X10*3/uL (0.1-1.2); Neutrophils Percent Auto 53.3 % (45-73); Platelet Count 214 X10*3/uL (160-400); Red Blood Count 4.68 X10*6/uL (4.60-5.80); Red Cell Distribution Width 13.2 % (11.0-16.0); White Blood Count 5.6 X10*3/uL (4.8-10.8)
[2024-09-16 10:26] LABS: Estimated Average Glucose 114 mg/dL; Hemoglobin A1C 137.3153 umol/L; Hemoglobin A1c % 5.6 % (<6.0); Total Hemoglobin (HGBA1C) 3675.2829 umol/L
[2024-09-16 10:39] LABS: Alanine Aminotransferase 40 U/L (0-40); Albumin Level 4.2 g/dL (3.5-5.0); Alkaline Phosphatase 46 U/L (39-117); Anion Gap 11 (12-20); Aspartate Amino Transferase 27 U/L (5-37); Bilirubin Total 0.9 mg/dL (0.0-1.0); Blood Urea Nitrogen 19 mg/dL (9-16); Calcium 9.1 mg/dL (8.4-10.2); Carbon Dioxide 23 mmol/L (22-29); Chloride 110 mmol/L (96-108); Cholesterol 181 mg/dL (<200); Estimated Glomerular Filt Rate > 60; Glucose Fasting 93 mg/dL (60-99); HDL Cholesterol 41 mg/dL (>40); LDL Cholesterol Calculated 105 mg/dL (<100); Potassium 4.1 mmol/L (3.3-5.1); Sodium 140 mmol/L (135-145); Total Protein 6.8 g/dL (6.5-8.0); Triglycerides 177 mg/dL (<150)
[2024-09-16 10:50] LABS: PSA,Total (Free>4and<10) 2.29 ng/mL (0.00-4.00)
== END 2024-09-16 06:10 | disposition home or self-care (01) ==
LOC: HO.HMGCLDS 06:09
PROVIDERS: PCP Internal Medicine; Visit Provider Internal Medicine
DX: R73.9 Hyperglycemia, unspecified (principal); I10 Essential (primary) hypertension; E78.5 Hyperlipidemia, unspecified; Z12.5 Encounter for screening for malignant neoplasm of prostate
CPT/HCPCS: 36415; 80053; 80061; 81001; 83036; 84153; 85025

== ENCOUNTER 2024-09-19 13:59 | Outpatient (AMB) | payer BC, SELFPAY ==
[2024-09-19 14:15] VITALS: BP 118/74; PULSE 86; RESP 18; TEMP 36.7; O2SAT 96; BMI 30.4
--- NOTE | 2024-09-19 14:15 | A.OFFPC_ITS ---
Vital Signs 09/19/24 14:15 Height 5 ft 5 in Weight 183 lb BMI 30.4 BP 118/74 Blood Pressure Location Rt brachial Position Sitting Respiration 18 Pulse 86 Pulse Source Pulse Oximeter Temp 98.1 F Temp Source Oral Pulse Oximetry (%) 96 Oxygen Delivery Method Room Air Intake Visit Reasons: Follow up on lab and weight med Intake Note: Pt is here today for a follow up visit on labs and weight med. Allergies penicillin V Allergy (Mild, Verified 09/19/24 14:17) Rash Medication List - Last Reconciled 09/19/24 by Kia Abdalla MD aspirin 81 mg PO DAILY atorvastatin 20 mg PO DAILY cetirizine (Zyrtec) 10 mg PO DAILY PRN lisinopril 20 mg PO DAILY Wegovy (semaglutide (weight loss)) 0.25 mg (0.5 mL) subcut QWEEK NS Zepbound (tirzepatide (weight loss)) 2.5 mg (0.5 mL) subcut QWEEK NS Tobacco use date assessed: 09/19/24 Dental Screening Dental Screen Date: 09/19/24 Did you have a dental visit in the last 12 months?: Yes Did you have a dental problem in the last 6 months where you did not have access to dental care?: No Was dental information given to patient?: Patient has dentist HPI Follow up on lab and weight med HPI Details Patient presents for the follow-up on hypertension hyperlipidemia controlled on current medications. He tried Wegovy for the weight loss but it has not been effective. Patient has been decreasing caloric intake increasing physical activity for over 6 months. [facility] Medical History Hyperlipidemia HTN (hypertension) Ankylosing spondylitis Annual physical exam Surgical History H/O colonoscopy Hx of appendectomy Family History Mother Ovarian ca Father Stroke Sister Stroke Maternal Grandfather Breast cancer Social History Housing: House Alcohol intake: current Alcohol intake frequency: does not drink Patient Tobacco Use Status: Never used Tobacco e-Cigarette/Vaping Use: Never Used service: No Current occupational status: employed Cognitive needs: No Hearing needs: No Vision needs: Yes Questionnaire PHQ-9 Over the last 2 weeks, how often have you been bothered by any of the following problems? 1. Little interest or pleasure in doing things: not at all 2. Feeling down, depressed, or hopeless: not at all 3. Trouble falling or staying asleep, or sleeping too much: not at all 4. Feeling tired or having little energy: not at all 5. Poor appetite or overeating: not at all 6. Feeling bad about yourself - or that you are a failure or have let yourself or your family down: not at all 7. Trouble concentrating on things, such as reading the newspaper or watching television: not at all 8. Moving or speaking so slowly that other people could have noticed. Or the opposite - being so fidgety or restless that you have been moving around a lot more than usual: not at all 9. Thoughts that you would be better off or of hurting yourself in some way: not at all Total score: 0 Depression Screening Interpretation: Negative Depression Screening Done: Yes 12160 - PHQ-9 Billing: Yes Source: Developed by Drs. Florencio Jones, Carolina Argueta, Carlito Mahajan and colleagues, with an educational luis a from [employer]. Thrive Questionnaire Date Thrive assessed: 09/19/24 I am a: Patient What is your living situation today?: I have a steady place to live Within the past 12 months, did the food you bought not last and you didn't have the money to get more?: I choose not to answer this question Within the past 12 months, did you worry whether your food would run out before you got money to buy more?: I choose not to answer this question Do you have trouble paying for medicines?: I choose not to answer this question Do you have trouble getting transportation to medical appointments?: I choose not to answer this question Do you have trouble paying your heating and electricity bill?: I choose not to answer this question Do you have trouble taking care of your child, family member or friend?: I choose not to answer this question Do you have trouble with day-to-day activities such as bathing, preparing meals, shopping, managing finances, etc.?: I choose not to answer this question Are you currently unemployed and looking for a job?: I choose not to answer this question Are you interested in more education?: I choose not to answer this question Please select the resources that you would like help with: None Currently or been in a relationship where the following occur: I choose not to answer THRIVE Score: 0 AUDIT C Alcohol Use Questionnaire (AUDIT-C) 1. How often do you have a drink containing alcohol?: Never 3. How often do you have six or more drinks on one occasion?: Never Total Score: 0 KRISTIN-7 AMB Questionnaire KRISTIN-7 Date KRISTIN - 7 assessed: 09/19/24 Feeling nervous, anxious, or on edge: 0 = Not at all Not being able to stop or control worryin = Not at all Worrying too much about different things: 0 = Not at all Trouble relaxin = Not at all Being so restless that it is hard to sit still: 0 = Not at all Becoming easily annoyed or irritable: 0 = Not at all Feeling afraid as if something awful might happen: 0 = Not at all Total KRISTIN-7 score (0-4 normal; 5-9 mild; 10-14 moderate; 15-21 severe): 0 Source: Developed by Drs. Florencio Jones, Carolina Argueta, Carlito Mahajan and colleagues, with an educational luis a from [employer]. KRISTIN-7 Assessment Billing KRISTIN-7 Assessment Tool: KRISTIN-7 Assessment 43026 Review of Systems Const All systems reviewed & are unremarkable except as noted in HPI and below Eyes Reports no additional complaints ENT Reports no additional complaints Card Reports no additional complaints Resp Reports no additional complaints GI Reports no additional complaints Reports no additional complaints Physical exam (Primary Care) Vital Signs: Last Vital Signs Temp 98.1 F 09/19/24 14:15 Pulse 86 09/19/24 14:15 Resp 18 09/19/24 14:15 BP 118/74 09/19/24 14:15 Pulse Ox 96 09/19/24 14:15 Oxygen Delivery Method Room Air 09/19/24 14:15 BMI result Body Mass Index 30.4 Tobacco/Smoking Status: Tobacco use Status Tobacco use date assessed 09/19/24 09/19/24 14:19 Patient Tobacco Use Status Never used Tobacco 09/19/24 14:19 e-Cigarette/Vaping Use Never Used 09/19/24 14:16 PHQ-9: PHQ-9 Score PHQ-9: Total score 0 09/19/24 14:19 Depression Screening Interpretation: Negative Thrive Assessment: Date of Thrive Assessment Date Thrive assessed 09/19/24 09/19/24 14:19 Currently or been in a relationship where the following occur: I choose not to answer Const General: no acute distress HENMT Head: Yes normal to inspection Eyes General: appearance normal, both eyes and all related structures Resp Effort & Inspection: normal respiratory effort Auscultation: clear to auscultation bilaterally Cardio Rhythm: regular rhythm Heart sounds: S1 normal heart sound present and S2 normal heart sound present Coding Level of Care Code Est Pt Level 4 (62485) Diagnoses Overweight E66.3 HTN (hypertension) I10 Hyperlipidemia E78.5 Ankylosing spondylitis M45.9 Additional Codes KRISTIN-7 Assessment Billing - KRISTIN-7 Assessment Tool: KRISTIN-7 Assessment 70244 ([id number]) PHQ-9 - 87475 - PHQ-9 Billing: Yes ([id number]) Assessment & Plan Assessment & Plan (1) Overweight: Code(s): E66.3 - Overweight Category: Medical Plan: Continue decreasing caloric intake increasing physical activity. Zepbound 2.5 mg weekly for the 1st month will be tried and the dose will be increased depending on patient's tolerance, follow-up in 3 months (2) HTN (hypertension): Code(s): I10 - Essential (primary) hypertension Category: Medical Plan: Continue Lisinopril (3) Hyperlipidemia: Code(s): E78.5 - Hyperlipidemia, unspecified Category: Medical Plan: Continue atorvastatin (4) Ankylosing spondylitis: Comment: f/u rheumatology Dr. Elizabeth Rendon Code(s): M45.9 - Ankylosing spondylitis of unspecified sites in spine Category: Medical Plan: Follow-up with rheumatology Medications: New Zepbound (tirzepatide (weight loss)) 2.5 mg (0.5 mL) subcut QWEEK 2 mL 0RF NS Zepbound (tirzepatide (weight loss)) 2.5 mg (0.5 mL) subcut QWEEK 2 mL 0RF NS Refilled atorvastatin 20 mg PO DAILY 90 tabs 3RF Discontinued Wegovy (semaglutide (weight loss)) Discontinued Reason: Doctor's Order 0.25 mg (0.5 mL) subcut QWEEK 6 mL 1RF NS
== END 2024-09-19 14:56 | disposition home or self-care (01) ==
LOC: HO.HMCC 14:00
PROVIDERS: PCP Internal Medicine; Visit Provider Internal Medicine
DX: E66.3 Overweight (principal); I10 Essential (primary) hypertension; E78.5 Hyperlipidemia, unspecified; M45.9 Ankylosing spondylitis of unspecified sites in spine

== ENCOUNTER → 2024-09-19 13:59 | Outpatient (BNVA) | payer BC, SELFPAY | PROVIDERS: PCP Internal Medicine; Visit Provider Internal Medicine | DX: E66.3 Overweight (principal); Z68.30 Body mass index [BMI] 30.0-30.9, adult; I10 Essential (primary) hypertension; E78.5 Hyperlipidemia, unspecified; M45.9 Ankylosing spondylitis of unspecified sites in spine; Z79.899 Other long term (current) drug therapy | CPT/HCPCS: 96127 ==

== ENCOUNTER 2024-11-23 07:00 | Outpatient (RCR) | payer BC, SELFPAY | END 2024-12-06 13:16 | disposition home or self-care (01) | LOC: HO.PTCHIC 07:00 | PROVIDERS: PCP Internal Medicine; Visit Provider Internal Medicine Rheumatology | DX: M45.7 Ankylosing spondylitis of lumbosacral region (principal); M54.6 Pain in thoracic spine | CPT/HCPCS: 97110; 97162 ==

== ENCOUNTER 2025-01-12 09:01 | Outpatient (REF) | payer BC, SELFPAY ==
[2025-01-12 13:49] LABS: Alanine Aminotransferase 43 U/L (0-40); Albumin Level 4.8 g/dL (3.5-5.0); Alkaline Phosphatase 52 U/L (39-117); Anion Gap 12 (12-20); Aspartate Amino Transferase 35 U/L (5-37); Blood Urea Nitrogen 19 mg/dL (9-16); Calcium 9.7 mg/dL (8.4-10.2); Carbon Dioxide 24 mmol/L (22-29); Chloride 108 mmol/L (96-108); Cholesterol 176 mg/dL (<200); Estimated Glomerular Filt Rate > 60; HDL Cholesterol 37 mg/dL (>40); Potassium 4.5 mmol/L (3.3-5.1); Sodium 139 mmol/L (135-145); Total Protein 7.5 g/dL (6.5-8.0); Triglycerides 193 mg/dL (<150)
== END 2025-01-12 09:02 | disposition home or self-care (01) ==
LOC: HO.HMGCLDS 09:01
PROVIDERS: PCP Internal Medicine; Visit Provider Internal Medicine
DX: I10 Essential (primary) hypertension (principal); E78.5 Hyperlipidemia, unspecified; R73.9 Hyperglycemia, unspecified; E66.3 Overweight; D12.6 Benign neoplasm of colon, unspecified
CPT/HCPCS: 36415; 80053; 80061; 83036

== ENCOUNTER 2025-01-12 09:01 | Outpatient (AMB) | payer BC, SELFPAY ==
--- NOTE | 2025-01-12 09:13 | MHC.PC.OV ---
Vital Signs 01/12/25 09:14 Height 5 ft 5 in Weight 178 lb BMI 29.6 BP 102/68 Blood Pressure Location Lt brachial Position Sitting Respiration 18 Pulse 89 Pulse Source Pulse Oximeter Temp 98.3 F Temp Source Oral Pulse Oximetry (%) 96 Oxygen Delivery Method Room Air Intake Visit Reasons: 3 months f/up Intake Note: Pt is here today for 3 months follow up on weight loss. Allergies penicillin V Allergy (Mild, Verified 01/12/25 09:15) Rash Tobacco use date assessed: 01/12/25 Dental Screening Dental Screen Date: 09/19/24 HPI 3 months f/up HPI Details Patient presents for the follow-up on hypertension hyperlipidemia. He has been taking Zepbound 7.5 mg, tolerating the medication well and lost 10 lb. he has been decreasing caloric intake increasing physical activity. [facility] Medical History (Updated 01/12/25 @ 12:30 by Kia Abdalla MD) Hyperglycemia Overweight Tubular adenoma of colon Hyperlipidemia HTN (hypertension) Ankylosing spondylitis Annual physical exam Surgical History H/O colonoscopy Hx of appendectomy Family History Mother Ovarian ca Father Stroke Sister Stroke Maternal Grandfather Breast cancer Social History Housing: House Alcohol intake: current Alcohol intake frequency: does not drink Patient Tobacco Use Status: Never used Tobacco e-Cigarette/Vaping Use: Never Used service: No Current occupational status: employed Cognitive needs: No Hearing needs: No Vision needs: Yes Questionnaire Thrive Questionnaire Date Thrive assessed: 09/19/24 I am a: Patient What is your living situation today?: I have a steady place to live Within the past 12 months, did the food you bought not last and you didn't have the money to get more?: I choose not to answer this question Within the past 12 months, did you worry whether your food would run out before you got money to buy more?: I choose not to answer this question Do you have trouble paying for medicines?: I choose not to answer this question Do you have trouble getting transportation to medical appointments?: I choose not to answer this question Do you have trouble paying your heating and electricity bill?: I choose not to answer this question Do you have trouble taking care of your child, family member or friend?: I choose not to answer this question Do you have trouble with day-to-day activities such as bathing, preparing meals, shopping, managing finances, etc.?: I choose not to answer this question Are you currently unemployed and looking for a job?: I choose not to answer this question Are you interested in more education?: I choose not to answer this question Please select the resources that you would like help with: None Currently or been in a relationship where the following occur: I choose not to answer THRIVE Score: 0 AUDIT C Alcohol Use Questionnaire (AUDIT-C) 2. How many drinks containing alcohol do you have on a typical day when you are drinking?: 1 or 2 3. How often do you have six or more drinks on one occasion?: Never Total Score: 0 KRISTIN-7 AMB Questionnaire KRISTIN-7 Date KRISTIN - 7 assessed: 09/19/24 Source: Developed by Drs. Florencio Jones, Carolina Argueta, Carlito Mahajan and colleagues, with an educational luis a from [employer]. Review of Systems Const All systems reviewed & are unremarkable except as noted in HPI and below ENT Reports no additional complaints Resp Reports no additional complaints GI Reports no additional complaints Reports no additional complaints Musc Reports no additional complaints Physical exam (Primary Care) Vital Signs: Last Vital Signs Temp 98.3 F 01/12/25 09:14 Pulse 89 01/12/25 09:14 Resp 18 01/12/25 09:14 BP 102/68 01/12/25 09:14 Pulse Ox 96 01/12/25 09:14 Oxygen Delivery Method Room Air 01/12/25 09:14 BMI result Body Mass Index 29.6 Tobacco/Smoking Status: Tobacco use Status Tobacco use date assessed 01/12/25 01/12/25 09:19 Patient Tobacco Use Status Never used Tobacco 01/12/25 09:19 e-Cigarette/Vaping Use Never Used 01/12/25 09:19 Thrive Assessment: Date of Thrive Assessment Date Thrive assessed 09/19/24 01/12/25 09:19 Currently or been in a relationship where the following occur: I choose not to answer Const General: no acute distress HENMT Head: Yes normal to inspection Eyes General: appearance normal, both eyes and all related structures Neck Neck: Yes supple Resp Effort & Inspection: normal respiratory effort Auscultation: clear to auscultation bilaterally Cardio Rhythm: regular rhythm Heart sounds: S1 normal heart sound present and S2 normal heart sound present GI Inspection: Yes normal to inspection Palpation (GI): Soft to palpation Percussion: Yes normal to percussion Auscultation: normal bowel sounds Coding Level of Care Code Est Pt Level 4 (54460) Diagnoses HTN (hypertension) I10 Hyperlipidemia E78.5 Hyperglycemia R73.9 Overweight E66.3 Tubular adenoma of colon D12.6 Assessment & Plan Assessment & Plan (1) HTN (hypertension): Code(s): I10 - Essential (primary) hypertension Category: Medical Plan: Continue Lisinopril (2) Hyperlipidemia: Code(s): E78.5 - Hyperlipidemia, unspecified Category: Medical Plan: Continue statin (3) Hyperglycemia: Code(s): R73.9 - Hyperglycemia, unspecified Category: Medical Plan: A1c is 5.6, continue ADA diet (4) Overweight: Code(s): E66.3 - Overweight Category: Medical Plan: Increase Zepbound to 10 mg weekly and continue decreasing caloric intake increasing physical activity follow-up in 2 months (5) Tubular adenoma of colon: Comment: 04/2023= 3 TA is repeat in [address] Cardoso Code(s): D12.6 - Benign neoplasm of colon, unspecified Category: Medical Plan: Up-to-date, follow-up with GI Orders: Orders Comprehensive [place]. Panel Fast Today E78.5 - Hyperlipidemia, unspecified, I10 - Essential (primary) hypertension, R73.9 - Hyperglycemia, unspecified Lipid Panel Today E78.5 - Hyperlipidemia, unspecified, I10 - Essential (primary) hypertension, R73.9 - Hyperglycemia, unspecified Hemoglobin A1c Today E78.5 - Hyperlipidemia, unspecified, I10 - Essential (primary) hypertension, R73.9 - Hyperglycemia, unspecified Medications: New Zepbound (tirzepatide (weight loss)) 10 mg (0.5 mL) subcut QWEEK 4 mL 0RF NS
[2025-01-12 09:14] VITALS: BP 102/68; PULSE 89; RESP 18; TEMP 36.8; O2SAT 96; BMI 29.6
--- OUTSIDE RECORDS SUMMARY | 2025-01-12 09:52 | XMS_ITS | Clinical Summary ---
Author Organization [facility] Address [address] [place] [phone] Phone Care Team Providers Care Assembler Seat Name Role Phone Kia Abdalla MD Primary Care Provider [phone] Allergies Active Allergy Reactions Criticality Noted Date Comments Penicillin Rash Low 02/23/2017 Medications lisinopril (PRINIVIL,ZESTRIL ) 20 MG tablet Take 20 mg by mouth daily. 01/27/2022 Active atorvastatin (LIPITOR) 20 MG tablet Take 20 mg by mouth daily. 02/03/2022 Active aspirin 81 MG EC tablet Take 81 mg by mouth daily. Active WEGOVY 0.25 mg/0.5 mL subcutaneous pen injection Inject 0.25 mg under the skin every 7 days. 07/11/2024 Active Active Problems Problem Noted Date Diagnosed Date Acute pain of both knees 08/10/2024 Chronic midline thoracic back pain 08/10/2024 Arthritis of left shoulder region 06/15/2023 Assessment & Plan (02/11/2024 1:36 PM EDT): Avoid falls, injuries, overuse. Continue joint protection, energy conservation techniques as educated by PT. Proper posture. He may benefit from topical Voltaren, Arnica, Biofreeze versus medicated patches such as Salonpas or IcyHot patch to-3 times daily and if needed at bedtime. Assessment & Plan (06/15/2023 9:26 AM EST): Avoid falls, injuries, overuse. Continue joint protection, energy conservation techniques as educated by PT. Proper posture. He may benefit from topical Voltaren, Arnica, Biofreeze versus medicated patches such as Salonpas or IcyHot patch to-3 times daily and if needed at bedtime. NSAID long-term use 06/15/2023 Assessment & Plan (02/11/2024 2:01 PM EDT): Take the lowest dose, with least frequency, for shortest time. Remember to take it always with food. Favor topical over oral preparations. Assessment & Plan (06/15/2023 9:27 AM EST): Take the lowest dose, with least frequency, for shortest time. Remember to take it always with food. Favor topical over oral preparations. Achilles tendinitis of right lower extremity Assessment & Plan (02/11/2024 1:36 PM EDT): Well-fitting, supportive shoes. Use warm pack versus warm shower prior to gentle, regular stretching and muscle strengthening exercises. Call if not better or worse Assessment & Plan (06/15/2023 9:26 AM EST): Well-fitting, supportive shoes. Use warm pack versus warm shower prior to gentle, regular stretching and muscle strengthening exercises. Call if not better or worse Class 1 obesity due to exces s calories without serious comorbidity with body mass index (BMI) of 31.0 to 31.9 in adult 06/15/2023 Assessment & Plan (02/11/2024 2:08 PM EDT): Congratulations on 3 pounds weight loss from 189 in late May 2023 down to 186 today and keep it off. Continue diligent Limit concentrated sugars, saturated fats and calories in the diet. Keep well-hydrated. If unable to achieve expected goal consider formal dietary/nutritional support. Assessment & Plan (06/15/2023 9:36 AM EST): Continue diligent portion control especially in view of 9 pounds weight gain since early December 2022 from 180 lbs up to 189 lbs today. Limit concentrated sugars, saturated fats and calories in the diet. Keep well-hydrated. If unable to achieve expected goal consider formal dietary/nutritional support. Aspirin long-term use 12/17/2022 Assessment & Plan (08/10/2024 8:05 AM EDT): Avoid falls, injuries and cuts. Monitor for excessive bruising and bleeding. Assessment & Plan (02/11/2024 1:36 PM EDT): Avoid falls, injuries and cuts. Monitor for excessive bruising and bleeding. Assessment & Plan (06/15/2023 8:27 AM EST): Avoid falls, injuries and cuts. Monitor for excessive bruising and bleeding. Assessment & Plan (12/17/2022 10:43 AM EDT): Avoid falls, injuries and cuts. Monitor for excessive bruising and bleeding. On statin therapy 12/17/2022 Assessment & Plan (08/10/2024 8:06 AM EDT): Monitor for muscle tenderness, swelling and weakness Assessment & Plan (02/11/2024 1:36 PM EDT): Monitor for muscle tenderness, swelling and weakness Assessment & Plan (06/15/2023 8:27 AM EST): Monitor for muscle tenderness, swelling and weakness Assessment & Plan (12/17/2022 10:43 AM EDT): Monitor for muscle tenderness, swelling and weakness Overweight with body mass in dex (BMI) of 29 to 29.9 in adult 12/17/2022 Assessment & Plan (12/17/2022 12:32 PM EDT): Continue diligent portion control. Limit concentrated sugars, saturated fats and calories in the diet. Keep well-hydrated. If unable to achieve expected goal consider formal dietary/nutritional support. Arthropathy of shoulder region 03/20/2022 Assessment & Plan (03/20/2022 9:10 AM EDT): Procedure: After an informed oral consent, under sterile conditions using Ethyl chloride spray for local anesthesia I have injected 40 mg DepoMedrol and 2 cc 1% Lidocaine into Left SHOULDER from posterior approach uneventfully. Details of post-procedure care were explained to the patient in the office and given in writing. Provider: Jonelle Cid MD Patient: Michael Monet : 1970 Date: 03/20/2022 Stiff shoulder 11/08/2018 Assessment & Plan (11/13/2018 1:21 PM EDT): Use warm packs versus warm shower prior to gentle range of motion, stretching and muscle strengthening exercises. I explained to him in the office routine and technique for climbing the wall and pendulum exercises. I also printed him instructions and pictures on shoulder exercises to continue daily at home. Call if worse or not better to consider formal PT or local steroid injection. Dyslipidemia 11/08/2018 Assessment & Plan (08/10/2024 8:05 AM EDT): Continue low cholesterol, low concentrated sugars diet based on Mediterranean diet. Gentle, daily exercises to improve his general fitness. Assessment & Plan (11/13/2018 1:22 PM EDT): Continue low cholesterol, low concentrated sugars diet based on Mediterranean diet. Gentle, daily exercises to improve his general fitness. Pain of both hip joints 05/26/2018 Ankylosing spondylitis of lumbosacral region 12/2017 Assessment & Plan (08/10/2024 8:05 AM EDT): Spine x-rays from late January 2023 revealed a combination of possible syndesmophyte but many osteophytes that go along with either ankylosing spondylitis/or DISH and osteoarthritis. He continues with tightness and soreness within the mid thoracic spine and shoulder and hip region. His left shoulder is much tighter and more painful as is his right hip. There is also tenderness over Achilles tendon. I asked him to continue physical therapy guided exercise program for his left shoulder and right Achilles tendinitis. In case his symptoms do not improve or worsen or labs show some inflammatory response we may need to advance therapy by adding biologic DMARD such as Enbrel or Humira. Carefully continue regular stretching and muscle strengthening exercises particularly within the core muscle. Topical cream such as Arnica, Aspercreme, Biofreeze versus medicated patches such as Salonpas or Icy hot 2-3 times daily or at least at bedtime as needed. Warm pool exercise program may be of additional benefit. Avoid falls, injuries, overuse. Continue regular balneotherapy that appears to keep his disease under control without the need for additional anti-inflammatory or disease modifying antirheumatic therapy. Joint protection, energy conservation. Splinting, assistive devices as needed. Consider formal occupational therapy if worse Assessment & Plan (02/11/2024 1:36 PM EDT): Spine x-rays from late January 2023 revealed a combination of possible syndesmophyte but many osteophytes that go along with either ankylosing spondylitis/or DISH and osteoarthritis. He continues with tightness and soreness within the mid thoracic spine and shoulder and hip region. His left shoulder is much tighter and more painful as is his right hip. There is also tenderness over Achilles tendon. I asked him to continue physical therapy guided exercise program for his left shoulder and right Achilles tendinitis. In case his symptoms do not improve or worsen or labs show some inflammatory response we may need to advance therapy by adding biologic DMARD such as Enbrel or Humira. Carefully continue regular stretching and muscle strengthening exercises particularly within the core muscle. Topical cream such as Arnica, Aspercreme, Biofreeze versus medicated patches such as Salonpas or Icy hot 2-3 times daily or at least at bedtime as needed. Warm pool exercise program may be of additional benefit. Avoid falls, injuries, overuse. Continue regular balneotherapy that appears to keep his disease under control without the need for additional anti-inflammatory or disease modifying antirheumatic therapy. Joint protection, energy conservation. Splinting, assistive devices as needed. Consider formal occupational therapy if worse Assessment & Plan (06/15/2023 9:24 AM EST): Spine x-rays from late January 2023 revealed a combination of possible syndesmophyte but many osteophytes that go along with either ankylosing spondylitis/or DISH and osteoarthritis. He continues with tightness and soreness within the mid thoracic spine and shoulder and hip region. His left shoulder is much tighter and more painful as is his right hip. There is also tenderness over Achilles tendon. I asked him to continue physical therapy guided exercise program for his left shoulder and right Achilles tendinitis. In case his symptoms do not improve or worsen or labs show some inflammatory response we may need to advance therapy by adding biologic DMARD such as Enbrel or Humira. Carefully continue regular stretching and muscle strengthening exercises particularly within the core muscle. Topical cream such as Arnica, Aspercreme, Biofreeze versus medicated patches such as Salonpas or Icy hot 2-3 times daily or at least at bedtime as needed. Warm pool exercise program may be of additional benefit. Avoid falls, injuries, overuse. Continue regular balneotherapy that appears to keep his disease under control without the need for additional anti-inflammatory or disease modifying antirheumatic therapy. Joint protection, energy conservation. Splinting, assistive devices as needed. Consider formal occupational therapy if worse Assessment & Plan (12/17/2022 12:31 PM EDT): Due to his intermittent midthoracic and left sacroiliac pain I requested new set of x-rays and blood work to make sure that there is no need for advancing therapy. Carefully continue regular stretching and muscle strengthening exercises particularly within the core muscle. Topical cream such as Arnica, Aspercreme, Biofreeze versus medicated patches such as Salonpas or Icy hot 2-3 times daily or at least at bedtime as needed. Warm pool exercise program may be of additional benefit. Avoid falls, injuries, overuse. Continue regular balneotherapy that appears to keep his disease under control without the need for additional anti-inflammatory or disease modifying antirheumatic therapy. Joint protection, energy conservation. Splinting, assistive devices as needed. Consider formal occupational therapy if worse Assessment & Plan (04/06/2022 11:17 AM EST): Continue regular stretching and muscle strengthening exercises particularly within the core muscle. Topical cream such as Arnica, Aspercreme, Biofreeze versus medicated patches such as Salonpas or Icy hot 2-3 times daily or at least at bedtime as needed. Warm pool exercise program may be of additional benefit. Avoid falls, injuries, overuse. Continue regular balneotherapy that appears to keep his disease under control without the need for additional anti-inflammatory or disease modifying antirheumatic therapy. New set of lab work requested to make sure that there is no need for advancing therapy. Joint protection, energy conservation. Splinting, assistive devices as needed. Consider formal occupational therapy if worse Assessment & Plan (11/13/2018 1:19 PM EDT): Continue regular stretching and muscle strengthening exercises particularly within the core muscle. Topical cream such as Arnica, Aspercreme, Biofreeze versus medicated patches such as Salonpas or Icy hot 2-3 times daily or at least at bedtime as needed. Warm pool exercise program may be of additional benefit. Avoid falls, injuries, overuse. Continue regular balneotherapy that appears to keep his disease under control without the need for additional anti-inflammatory or disease modifying antirheumatic therapy. Joint protection, energy conservation. Splinting, assistive devices as needed. Consider formal occupational therapy if worse Short of breath on exertion 12/23/2017 Gastroesophageal reflux disease without esophagi tis 12/23/2017 Carpal tunnel syndrome of left wrist 12/23/2017 Resolved Problems Problem Noted Date Diagnosed Date Resolved Date Overweight (BMI 25.0-29.9) 04/06/2022 0 12/17/2022 Assessment & Plan (04/06/2022 11:20 AM EST): I reviewed with Michael that 5 lbs additional weight since last visit may be contributing to his increasing joint pain within the knees and feet in addition to increasing his dyslipidemia that may be associated with cardiovascular complications. Follow diligent portion control. Continue limitng concentrated sugars, saturated fats and calories in the diet. Keep well-hydrated. If unable to achieve expected goal consider formal dietary/nutritional support. Class 1 obesity due to exces s calories without serious comorbidity with body mass index (BMI) of 30.0 to 30.9 in adult 12/23/201706/2022 Immunizations Immunization Administration Dates Next Due COVID-19 (Pre-03/09) Pfizer Vaccine, mRNA, PF Social History Tobacco Use Types Packs/Day Years Used Date Smoking Tobacco: Never Smokeless Tobacco: Never Tobacco Cessation:Counseling Given: Not Answered Education Answer Date Recorded Are you interested in more education? Not on tommy e 09/12/2022 Are you concerned about learning? Not on file 09/12/2022 No 09/12/2022 No 09/12/2022 Digital Access Answer Date Recorded No 10/11/2022 No 10/11/2022 Reliable internet access at home? Not on file 10/11/2022 Device with a working camera? Not on file Sex and Gender Information Value Date Recorded Sex Assigned at Not on file Legal Sex Male 2:56 PM EDT Gender Identity Not on file Sexual Orientation Not on file Last Filed Vital Signs Vital Sign Reading Time Taken Comments Blood Pressure 118/78 08/10/2024 7:58 AM EDT Pulse 82 08/10/2024 7:58 AM EDT Temperature - - Respiratory Rate - - Oxygen Saturation 96% 08/10/2024 7:58 AM EDT Inhaled Oxygen Concentration - - Weight 82.6 kg (182 lb 3.2 oz) 08/10/2024 7:58 A M EDT Height 165.1 cm (5' 5 ) 08/10/2024 7:58 AM EDT Body Mass Index 30.32 08/10/2024 7:58 AM EDT Plan of Treatment Upcoming Encounters Date Type Department Care Team (Late st Contact Info) Description 02/10/2025 8:30 AM EDT Office Visit [facility] Rheumatology [address] [place] [id number] Jonelle Cid MD [address] [place] [address], [address] [place] [address] [email or web address] Health Maintenance Due Date Last Done Comments Adult Td,Tdap Booster 1970 DEPRESSION SCREENING 1983 HEPATITIS C SCREENING 1989 HIV ONE-TIME SCREENING (18-65 YEARS) 1989 COLOGUARD 2016 COLONOSCOPY 2016 COLORECTAL CANCER SCREENING 2016 FIT TEST 2016 FOBT 2016 SIGMOIDOSCOPY 2016 VIRTUAL COLONOSCOPY 2016 PNEUMOCOCCAL VACCINES (50+ years) (1 of 1 - PCV) 2021 ZOSTER VACCINES (1 of 2) 2021 LIPID PANEL 11/09/2023 11/08/2018 COVID-19 VACCINE (5 - season) 2024 05/25/2022, 04/14/2021, 10/12/2020, Additional history exists CREATININE LEVEL 08/10/2025 08/10/2024, , 06/15/2023, Additional history exists POTASSIUM LEVEL 08/10/2025 08/10/2024, 01/17, 06/15/2023, Additional history exists SCREENING FOR DIABETES 08/11/2027 08/10/2024 SMOKING STATUS SCREENING (Once After 26 Yrs) Completed 08/10/2024 HEPATITIS A VACCINES Aged Out No long er eligible based on patient's age to complete this topic HIB VACCINES Aged Out No longer eligi ble based on patient's age to complete this topic MENINGOCOCCAL VACCINES (ACWY) Aged Out No longer eligible based on patient's age to complete this topic MENINGOCOCCAL VACCINES (B) Aged Out N o longer eligible based on patient's age to complete this topic Medical Devices Not on file Procedures Procedure Name Priority Date/Time Associated Diagnosis Comments COMPREHENSIVE METABOLIC PANEL Routine 08/10/2024 8:49 AM EDT Ankylosing spondylitis of lumbosacral region Aspirin long-term use NSAID long-term use LIPID PANEL Routine 11/08/2018 2:53 PM EDT Dyslipidemia from Last 3 Months or Most Recently Relevant to Health Maintenance Results * (ABNORMAL) Comprehensive metabolic panel (08/10/2024 8:49 AM EDT) SODIUM 139 133 - 146 mmol/L [facility] POTASSIUM 4.4 3.3 - 5.1 mmol/L [facility] CHLORIDE 105 96 - 108 mmol/L [facility] CO2 23 21 - 35 mmol/L [facility] BUN 17 6 - 19 mg/dL [facility] CREATININE 0.80 0.5 - 1.5 mg/dL [facility] GLUCOSE 104(H) 70 - 99 mg/dL [facility] ALBUMIN 4.5 3.9 - 4.8 g/dL [facility] TOTAL PROTEIN 7.3 6.5 - 8.0 g/dL [facility] CALCIUM 9.6 8.4 - 10.3 mg/dL [facility] ALKALINE PHOSPHATASE 51 39 - 117 U/L [facility] TOTAL BILIRUBIN 0.4 0.0 - 1.2 mg/dL [facility] AST 17 0 - 37 U/L [facility] ALT 29 0 - 40 U/L [facility] GLOBULIN 2.8 1 - 4.8 g/dL [facility] EGFR 106 >59 mL/min/1.7 3m2 [facility] Comment:Estimated glomerular filtration rate calculated using the CKD-EPI refit equation. ANION GAP 15 10 - 20 mmol/L [facility] Blood 08/10/2024 8:49 AM EDT 08/10/2024 8:55 AM EDT us Jonelle Cid MD LAB BLOOD ORDERABLES Fin al Result Performing Organization Address City/State/[facility] Co de Phone Number [address] [address] * (ABNORMAL) Lipid panel (11/08/2018 2:53 PM EDT) HDL 45 mg/dL [facility] Comment: Interpretation <40 mg/dL: Low HDL cholesterol (major risk factor for CHD) Greater than or equal to 60 mg/dL: High HDL cholesterol ( negative risk factor for CHD) HDL - cholesterol is affected by a number of factors, e.g. smoking, excerise, hormones, sex and age. CHOLESTEROL 244(H) 0 - 240 mg/dL [facility] TRIGLYCERIDES 133 30 - 160 mg/dL [facility] LDL 172(H) 50 - 129 mg/dL [facility] Comment: LDL levels in terms of risk for coronary heart disease: <100 mg/dL: Optimal 100-129 mg/dL: Near or above optimal 130-159 mg/dL: Borderline high 160-189 mg/dL: High >190 mg/dL: Very High CARDIAC RISK RATIO 5.4(H) 3.4 - 5.0 [facility] Blood 11/08/2018 2:53 PM EDT 11/08/2018 2:56 PM EDT Jonelle Cid MD LAB BLOOD ORDERABLES Fin al Result [facility] [address] [place] [address] from Last 3 Months or Most Recently Relevant to Health Maintenance [place] [address] [place] [address] [facility] HMO POS [facility] HMO POS Member Subscriber Plan / Payer (Ef fective 2020-Present) Name:Michael Monet Relation to Subscriber:Self Name:Michael Monet Payer ID:[id number] (NAIC) Type:HMO Address: [address] [place] [place] [facility] Member Subscriber Plan / Payer ( fective 2020-) Name:Michael Monet Relation to Subscriber:Self Name:ManavalfredoMichael holman Payer ID:[id number] (NAIC) Type:HMO Address: [address] [place] [facility] HMO POS Member Subscriber Plan / Payer ( fective 2020-) Name:Kendallprerna Michael Relation to Subscriber:Self Name:Michael Monet Payer ID:[id number] (NAIC) Type:HMO Address: [address] [place], [place] [facility] HMO POS Member Subscriber Plan / Payer ( fective 2020-Present) Name:ManavkavyaMichael mejia Relation to Subscriber:Self Name:Michael Monet Payer ID:[id number] (NAIC) Type:HMO Address: [address] [place] [place] [facility] Member Subscriber Plan / Payer ( fective 2020-) Name:Michael Monet Relation to Subscriber:Self Name:ManavkavyaMichael mejia Payer ID:[id number] (NAIC) Type:HMO Address: [phone] [place] [facility] Member Subscriber Plan / Payer ( fective 2020-) Name:Bartolo Monetory Relation to Subscriber:Self Name:ManavkavyaMichael mejia Payer ID:[id number] (NAIC) Type:HMO Address: [address] [place], [place] [facility] HMO POS Care Teams Assembler Seat Relationship Specialty Start Date End Date Kia Abdalla MD [address] [place] [address] PCP - General Internal Medicine 02/11/24 Additional Source Comments The information contained in this document represents components of the legal health record. It is not the complete legal health record.[facility]
--- OUTSIDE RECORDS SUMMARY | 2025-01-12 09:52 | XMS_ITS | Encounter Summary ---
Author Organization [facility] Address [address] [place] [address] [place] [phone] Phone Care Team Providers Care Automotive Porter Name Role Phone Kia Abdalla MD Primary Care Provider [phone] Encounter Details Date Type Department Care Team (Late st Contact Info) Description 08/10/2024 Ancillary Orders [facility] [address] [place] [id number] Jonelle Cid MD [address] [facility], [address] [place] [address] [email or web address] Ankylosing spondylitis of lumbosacral region (Primary Dx); Dyslipidemia; Aspirin long-term use; On statin therapy; Acute pain of both knees; Chronic midline thoracic back pain Social History Tobacco Use Types Packs/Day Years Used Date Smoking Tobacco: Never Smokeless Tobacco: Never Education Answer Date Recorded Are you interested [...] on file Sexual Orientation Not on file documented as of this encounter Plan of Treatment Upcoming Encounters Date Type Department Care Team (Late st Contact Info) Description 02/10/2025 8:30 AM EDT Office Visit [facility] [address] [place] [address] Jonelle Cid MD [address] [facility], [address] [place] [address] maria del documented as of this encounter Results * XR KNEE 4 OR MORE VIEWS (BILATERAL) (08/10/2024 9:19 AM EDT) Anatomical Region Laterality Modality Knee Bilateral, Knee Right, Knee Left Computed Radiography 08/11/2024 9:46 AM EDT Impressions 08/11/2024 9:47 AM EDT Mild patellofemoral compartment degenerative changes. Narrative 08/11/2024 9:47 AM EDT XR KNEE 4 OR MORE VIEWS (BILATERAL) Referring clinician's provided indication for this examination in Epic: Pain; ankylosing spondylitis COMPARISON: None FINDINGS: Left Knee: No acute fracture or dislocation. Mild patellofemoral compartment degenerative changes. Trace joint effusion. Right Knee: No acute fracture or dislocation. Mild patellofemoral compartment degenerative changes. Trace joint effusion. Procedure Note Gilbert Lara MD - 08/11/2024 XR KNEE 4 OR MORE VIEWS (BILATERAL) Referring clinician's provided indication for this examination in Epic:Pain; ankylosing spondylitis COMPARISON: None FINDINGS: Left Knee: No acute fracture or dislocation. Mild patellofemoralcompartment degenerative changes. Trace joint effusion. Right Knee: No acute fracture or dislocation. Mild patellofemoralcompartment degenerative changes. Trace joint effusion. IMPRESSION: Mild patellofemoral compartment degenerative changes. us Jonelle Cid MD IMG XR LOWER EXTREMITY F inal Result documented in this encounter Visit Diagnoses Diagnosis Ankylosing spondylitis of lumbosacral region Acute pain of both knees Ankylosing spondylitis of lumbosacral region- Primary Dyslipidemia Other and unspecified hyperlipidemia Aspirin long-term use Encounter for long-term (current) use of aspirin On statin therapy Acute pain of both knees Chronic midline thoracic back pain documented in this encounter Care Teams Automotive Porter Relationship Specialty Start Date End Date Kia Abdalla MD [facility] [place] [address] PCP - General Internal Medicine 02/11/24 documented as of this encounter Additional Source Comments The information contained in this document represents components of the legal health record. It is not the complete legal health record.[facility]
== END 2025-01-12 09:48 | disposition home or self-care (01) ==
LOC: HO.HMCC 09:01
PROVIDERS: PCP Internal Medicine; Visit Provider Internal Medicine
DX: I10 Essential (primary) hypertension (principal); E78.5 Hyperlipidemia, unspecified; R73.9 Hyperglycemia, unspecified; E66.3 Overweight; D12.6 Benign neoplasm of colon, unspecified

== ENCOUNTER 2025-03-06 11:54 | Outpatient (REF) | payer BC, SELFPAY ==
[2025-03-06 16:48] LABS: Alanine Aminotransferase 36 U/L (0-40); Albumin Level 5.1 g/dL (3.5-5.0); Alkaline Phosphatase 47 U/L (39-117); Anion Gap 12 (12-20); Aspartate Amino Transferase 27 U/L (5-37); Blood Urea Nitrogen 15 mg/dL (9-16); Calcium 10.2 mg/dL (8.4-10.2); Carbon Dioxide 24 mmol/L (22-29); Chloride 107 mmol/L (96-108); Cholesterol 158 mg/dL (<200); Estimated Glomerular Filt Rate > 60; HDL Cholesterol 45 mg/dL (>40); Potassium 4.3 mmol/L (3.3-5.1); Sodium 139 mmol/L (135-145); Total Protein 7.8 g/dL (6.5-8.0); Triglycerides 100 mg/dL (<150)
[2025-03-06 17:30] LABS: PSA,Total (Free>4and<10) 1.95 ng/mL (0.00-4.00)
== END 2025-03-06 11:55 | disposition home or self-care (01) ==
LOC: HO.HMGCLDS 11:54
PROVIDERS: PCP Internal Medicine; Visit Provider Internal Medicine
DX: Z00.00 Encounter for general adult medical examination without abnormal findings (principal); R73.9 Hyperglycemia, unspecified; I10 Essential (primary) hypertension; E78.5 Hyperlipidemia, unspecified; E66.3 Overweight; Z12.5 Encounter for screening for malignant neoplasm of prostate
CPT/HCPCS: 36415; 80053; 80061; 83036; 84153

== ENCOUNTER 2025-03-06 11:54 | Outpatient (AMB) | payer BC, SELFPAY ==
[2025-03-06 11:57] VITALS: BP 110/70; PULSE 79; RESP 18; TEMP 36.5; O2SAT 98; BMI 28.3
--- NOTE | 2025-03-06 11:57 | MHC.PC.OV ---
Vital Signs 03/06/25 11:57 Height 5 ft 5 in Weight 170 lb BMI 28.3 BP 110/70 Blood Pressure Location Lt brachial Position Sitting Respiration 18 Pulse 79 Pulse Source Pulse Oximeter Temp 97.7 F Temp Source Oral Pulse Oximetry (%) 98 Oxygen Delivery Method Room Air Intake Visit Reasons: Annual PE Allergies penicillin V Allergy (Mild, Verified 01/12/25 09:15) Rash Medication List - Last Reconciled 03/06/25 by Kia Abdalla MD aspirin 81 mg PO DAILY atorvastatin 20 mg PO DAILY cetirizine (Zyrtec) 10 mg PO DAILY PRN lisinopril 20 mg PO DAILY Zepbound (tirzepatide (weight loss)) 10 mg (0.5 mL) subcut QWEEK NS Zepbound (tirzepatide (weight loss)) 12.5 mg (0.5 mL) subcut QWEEK NS Tobacco use date assessed: 03/06/25 Dental Screening Dental Screen Date: 09/19/24 HPI Annual PE HPI Details Patient presents for a physical. He lost 15 lb on Zepbound. Patient has been decreasing caloric intake increasing physical activity. He denies any side effects from Zepbound [facility] Medical History Hyperglycemia Overweight Tubular adenoma of colon Hyperlipidemia HTN (hypertension) Ankylosing spondylitis Annual physical exam Surgical History H/O colonoscopy Hx of appendectomy Family History Mother Ovarian ca Father Stroke Sister Stroke Maternal Grandfather Breast cancer Social History Housing: House Alcohol intake: current Alcohol intake frequency: does not drink Patient Tobacco Use Status: Never used Tobacco e-Cigarette/Vaping Use: Never Used service: No Current occupational status: employed Cognitive needs: No Hearing needs: No Vision needs: Yes Questionnaire Thrive Questionnaire Date Thrive assessed: 09/19/24 I am a: Patient What is your living situation today?: I have a steady place to live Within the past 12 months, did the food you bought not last and you didn't have the money to get more?: I choose not to answer this question Within the past 12 months, did you worry whether your food would run out before you got money to buy more?: I choose not to answer this question Do you have trouble paying for medicines?: I choose not to answer this question Do you have trouble getting transportation to medical appointments?: I choose not to answer this question Do you have trouble paying your heating and electricity bill?: I choose not to answer this question Do you have trouble taking care of your child, family member or friend?: I choose not to answer this question Do you have trouble with day-to-day activities such as bathing, preparing meals, shopping, managing finances, etc.?: I choose not to answer this question Are you currently unemployed and looking for a job?: I choose not to answer this question Are you interested in more education?: I choose not to answer this question Please select the resources that you would like help with: None Currently or been in a relationship where the following occur: I choose not to answer THRIVE Score: 0 KRISTIN-7 AMB Questionnaire KRISTIN-7 Date KRSITIN - 7 assessed: 09/19/24 Source: Developed by Drs. Florencio Jones, Carolina Argueta, Carlito Mahajan and colleagues, with an educational luis a from [employer]. Review of Systems Const All systems reviewed & are unremarkable except as noted in HPI and below Eyes Reports no additional complaints ENT Reports no additional complaints Card Reports no additional complaints Resp Reports no additional complaints GI Reports no additional complaints Reports no additional complaints Physical exam (Primary Care) Vital Signs: Last Vital Signs Temp 97.7 F 03/06/25 11:57 Pulse 79 03/06/25 11:57 Resp 18 03/06/25 11:57 BP 110/70 03/06/25 11:57 Pulse Ox 98 03/06/25 11:57 Oxygen Delivery Method Room Air 03/06/25 11:57 BMI result Body Mass Index 28.3 Tobacco/Smoking Status: Tobacco use Status Tobacco use date assessed 03/06/25 03/06/25 12:01 Patient Tobacco Use Status Never used Tobacco 03/06/25 11:59 e-Cigarette/Vaping Use Never Used 03/06/25 11:59 Thrive Assessment: Date of Thrive Assessment Date Thrive assessed 09/19/24 03/06/25 11:59 Currently or been in a relationship where the following occur: I choose not to answer Const General: no acute distress HENMT Head: Yes normal to inspection Ears: hearing grossly normal bilaterally Eyes General: appearance normal, both eyes and all related structures Neck Neck: Yes no lymphadenopathy and Yes supple Resp Effort & Inspection: normal respiratory effort Auscultation: clear to auscultation bilaterally Cardio Rhythm: regular rhythm Heart sounds: S1 normal heart sound present and S2 normal heart sound present GI Inspection: Yes normal to inspection Palpation (GI): Soft to palpation Percussion: Yes normal to percussion Auscultation: normal bowel sounds Coding Level of Care Code Est Pt Prev Care 40-64y(74228) Diagnoses Hyperglycemia R73.9 HTN (hypertension) I10 Hyperlipidemia E78.5 Annual physical exam Z00.00 Overweight E66.3 Assessment & Plan Assessment & Plan (1) Hyperglycemia: Code(s): R73.9 - Hyperglycemia, unspecified Category: Medical Plan: A1c is 5.3, continue ADA diet increase physical activity (2) HTN (hypertension): Code(s): I10 - Essential (primary) hypertension Category: Medical Plan: Continue lisinopril (3) Hyperlipidemia: Code(s): E78.5 - Hyperlipidemia, unspecified Category: Medical Plan: Continue statin (4) Annual physical exam: Code(s): Z00.00 - Encounter for general adult medical examination without abnormal findings Category: Medical Plan: Well-balanced diet regular physical activity discussed with the patient he is up-to-date with colonoscopy (5) Overweight: Code(s): E66.3 - Overweight Category: Medical Plan: Decreasing caloric intake increasing physical activity weight loss discussed with the patient. He will increase the dose of Zepbound to 12.5 mg and will follow-up in 3 months or PRN Orders: Orders Hemoglobin A1c 6 Months E78.5 - Hyperlipidemia, unspecified, R73.9 - Hyperglycemia, unspecified Comprehensive Met. Panel 6 Months E78.5 - Hyperlipidemia, unspecified, R73.9 - Hyperglycemia, unspecified Lipid Panel 6 Months E78.5 - Hyperlipidemia, unspecified, R73.9 - Hyperglycemia, unspecified Medications: New Zepbound (tirzepatide (weight loss)) 12.5 mg (0.5 mL) subcut QWEEK 6 mL 2RF NS Discontinued Zepbound (tirzepatide (weight loss)) Discontinued Reason: Duplicate 10 mg (0.5 mL) subcut QWEEK 4 mL 0RF NS
== END 2025-03-06 12:28 | disposition home or self-care (01) ==
LOC: HO.HMCC 11:55
PROVIDERS: PCP Internal Medicine; Visit Provider Internal Medicine
DX: R73.9 Hyperglycemia, unspecified (principal); I10 Essential (primary) hypertension; E78.5 Hyperlipidemia, unspecified; Z00.00 Encounter for general adult medical examination without abnormal findings; E66.3 Overweight